=== PATIENT | female | born 1950 | race Caucasian/White ===

== ENCOUNTER → 2018-02-04 | Outpatient (CLI) | payer MEDICARE | LOC: GMAB 11:10 | PROVIDERS: ATTEND Family Medicine | DX: I10 Essential (primary) hypertension (principal) ==

== ENCOUNTER 2018-03-30 05:27 | Day surgery (SDC) | payer MEDICARE ==
[2018-03-30] MEDS ORDERED: LIDOCAINE 1% PF 2 ML AMP INJ ONE (05:28)
[2018-03-30] MEDS ORDERED: TROP 1%/CYCLOPEN 1%/PHENYL 2% DROPS ONE (06:03)
[2018-03-30] MEDS ORDERED: TOBRAMYCIN SULF 0.3 % OPHT SOL 1 DROP RIGHT_EYE ONE ×3 (07:00→07:53)
[2018-03-30] MEDS: PROPARACAINE 0.5% OPHTH SOL 15 ML BTTL ONE ×2 (07:00→07:25)
[2018-03-30] MEDS ORDERED: MIDAZOLAM INJ 2 MG/2 ML VIAL ONE (07:13)
[2018-03-30] MEDS ORDERED: DEXAMETHASONE 0.1% OPHTH SOL 1 DROP RIGHT_EYE ONE ×2 (07:40→07:53)
[2018-03-30] MEDS ORDERED: BRIMONIDINE 0.2% OPHTH DROPS RIGHT_EYE ONE ×2 (07:41→07:53)
[2018-03-30 08:52] VITALS: BP 190/103; TEMP 97.1; O2SAT 96
== END 2018-03-30 08:25 | disposition home or self-care (01) ==
LOC: AMB 05:27
PROVIDERS: ATTEND Ophthalmology
DX: H25.11 Age-related nuclear cataract, right eye (principal); I10 Essential (primary) hypertension; F41.9 Anxiety disorder, unspecified; F17.210 Nicotine dependence, cigarettes, uncomplicated
CPT/HCPCS: 00142; 66984; J2250

== ENCOUNTER 2018-04-13 05:16 | Day surgery (SDC) | payer MEDICARE ==
[2018-04-13] MEDS ORDERED: TROP 1%/CYCLOPEN 1%/PHENYL 2% DROPS ONE (05:49)
[2018-04-13] MEDS ORDERED: PROPARACAINE 0.5% OPHTH SOL 15 ML BTTL ONE (05:49)
[2018-04-13] MEDS ORDERED: MIDAZOLAM INJ 2 MG/2 ML VIAL ONE ×2 (07:40→07:48)
[2018-04-13] MEDS ORDERED: PROPARACAINE 0.5% OPHTH SOL 15 ML BTTL LEFT_EYE ONE (07:43)
[2018-04-13] MEDS ORDERED: LIDOCAINE 1% PF 2 ML AMP INJ ONE ×2 (07:54→07:57)
[2018-04-13] MEDS ORDERED: DEXAMETHASONE 0.1% OPHTH SOL 1 DROP LEFT_EYE ONE ×3 (07:54→08:10)
[2018-04-13] MEDS ORDERED: TOBRAMYCIN SULF 0.3 % OPHT SOL 1 DROP LEFT_EYE ONE ×3 (07:55→08:10)
[2018-04-13] MEDS ORDERED: BRIMONIDINE 0.2% OPHTH DROPS LEFT_EYE ONE ×3 (07:55→08:10)
== END 2018-04-13 08:35 | disposition home or self-care (01) ==
LOC: AMB 05:16
PROVIDERS: ATTEND Ophthalmology
DX: H25.12 Age-related nuclear cataract, left eye (principal); I10 Essential (primary) hypertension; J44.9 Chronic obstructive pulmonary disease, unspecified; F41.9 Anxiety disorder, unspecified; F17.200 Nicotine dependence, unspecified, uncomplicated
CPT/HCPCS: 00142; 66984; J2250

== ENCOUNTER 2018-08-19 10:44 | Inpatient (IN) | payer MEDICARE, OTHER ==
--- NOTE | 2018-08-19 11:31 | ED.PDOC ---
History of Present Illness - General Chief Complaint: Neuro Symptoms/Deficits Stated Complaint: dizzy Time Seen by Provider: 08/19/18 10:46 Source: patient Exam Limitations: no limitations - History of Present Illness Initial Comments: the patient is a 67-year-old female who lives alone presents by EMS secondary to waking up with severe dizziness this morning. She does not describe it as true rotational vertigo but she does not want to open her eyes as it does make the dizziness worse. On exam she does not track my finger well to test for nystagmus and she reports she is too dizzy to do so. She denies any long-term medical problems and has not taken any medications. She was significantly hypertensive upon arrival by EMS for systolic blood pressure around 210. An oral nitroglycerin brought that down approximately 30 points. No chest pain or shortness of breath. She did throw up twice with the onset of the dizziness. No focal neurological deficits otherwise. Upon initial observation when the patient falls asleep her oxygen levels do desaturate down to around 80%. She has no known history of any congestive heart failure, COPD, asthma, pneumonia or pulmonary emboli in the past. She does appear to be breathing when this occurs. This has been confirmed with 2 separate pulse oximetries. Timing/Duration: 1-3 hours Severity: severe Improving Factors: nothing Worsening Factors: movement Associated Symptoms: other - dizziness Allergies/Adverse Reactions: Allergies NO KNOWN ALLERGY Allergy (Verified 08/19/18 11:00) Home Medications: Ambulatory Orders NK [NK] 03/30/18 Review of Systems - Review of Systems Constitutional: States: malaise EENTM: States: other - the dizziness is worse with opening the eyes. She has a difficult time focusing. Respiratory: States: no symptoms reported Cardiology: States: no symptoms reported Gastrointestinal/Abdominal: States: nausea, vomiting - no blood or bile Genitourinary: States: no symptoms reported Musculoskeletal: States: no symptoms reported Skin: States: no symptoms reported Neurological: States: anxiety, headache - she initially reported a mild headache to EMS however she is not reporting that currently. She did not fall Endocrine: States: no symptoms reported Hematologic/Lymphatic: States: no symptoms reported All other Systems: No Change from Baseline Past Medical History (General) - Patient Medical History Hx Dementia: No Hx of COPD: No Hx Cardiac Disorders: No Hx Congestive Heart Failure: No Hx Diabetes: No Hx Gastroesophageal Reflux: No Hx MRSA: No Surgical History: no surgical history - Vaccination History Hx Influenza Vaccination: No Hx Pneumococcal Vaccination: No - Social History Hx Alcohol Use: No Hx Substance Use Treatment: No - Female History Patient is a Female of Child Bearing Age (10 -59 yrs old): No Family Medical History - Family History Mother Family History: Unknown Physical Exam - Physical Exam General Appearance: Alert, No apparent distress Eye Exam: bilateral other - ocular exam is limited by patient cooperation. She reports that she is too dizzy to cooperate with the exam. Pupils do appear symmetrical. I will try to do another exam later. Ears, Nose, Throat: hearing grossly normal, normal ENT inspection, normal pharynx Neck: full range of motion, supple Respiratory: chest non-tender, lungs clear, normal breath sounds, no respiratory distress, no accessory muscle use Cardiovascular/Chest: normal peripheral pulses, regular rate, rhythm, no edema Peripheral Pulses: radial,right: 2+, radial,left: 2+, dorsalis pedis,right: 2+, dorsalis pedis,left: 2+ Gastrointestinal/Abdominal: non tender, soft Rectal Exam: deferred Back Exam: normal inspection, no CVA tenderness, no vertebral tenderness Extremity: non-tender, normal inspection, no pedal edema, normal capillary refill Neurologic: cat swamper II-XII nml as tested, no motor/sensory deficits, alert, normal mood/affect - the patient is mildly drowsy. No nuchal rigidity or meningeal signs., oriented x 3 Skin Exam: normal color Comments: Vital Signs - 24 hr 08/19/18 10:48 Temperature 96.1 F L Pulse Rate [ 67 pulse ox] Respiratory 22 Rate Blood Pressure 183/91 [Left Arm] O2 Sat by Pulse 96 Oximetry Vital Signs - 24 hr 08/19/18 08/19/18 08/19/18 10:48 11:55 12:42 Temperature 96.1 F L Pulse Rate Pulse Rate [ 67 71 70 pulse ox] Respiratory 22 16 Rate Blood Pressure 183/91 166/75 202/71 [Left Arm] O2 Sat by Pulse 96 96 99 Oximetry 08/19/18 12:54 Temperature Pulse Rate 65 Pulse Rate [ pulse ox] Respiratory 22 Rate Blood Pressure [Left Arm] O2 Sat by Pulse 97 Oximetry Progress - Progress Progress: 08/19/18 13:21 the patient is a 67-year-old female presenting to the emergency room this morning primarily due to vertigo. The patient is found to have significant hypoxia when she falls asleep dipping down below 80% on room air while her counted respiratory rate remains above 16. She has no known long- term lung pathology but has had pneumonia several times in the past and does smoke. The patient is going to be treated for COPD exacerbation and has received a dose of Decadron, DuoNeb's and a dose of IV azithromycin. She is also receiving supplemental oxygen. CT scan of the head was performed due to the significant vertigo. Clinically this does not appear to be benign positional vertigo at this time. This may be due to cerebral irritation from hypoxia in which case this may be hypoxic encephalopathy. Continue oxygen for now. The patient will be admitted for further treatment and workup as deemed necessary. She obviously has some chronic changes on her chest x-ray. Assuming she corrects with the above measures she will still need a follow-up pulmonology appointment for her chronic issues. Obviously smoking is not advised. Blood culture has been performed. The patient has had these findings explained to her and has agreed to the plan of care above. Please note that the patient does have some significant hypertension and has been started on some clonidine. Her blood pressures spike when her dizziness flares and decreases down to the 160s on the systolic end when she is relaxed. - Results/Orders Results/Orders: Laboratory Tests 08/19/18 08/19/18 08/19/18 Unknown Unknown Unknown WBC 10.2 RBC 5.04 Hgb 15.9 Hct 46.8 MCV 92.8 MCH 31.5 H MCHC 33.9 RDW 14.5 Plt Count 324 MPV 8.0 Absolute Neuts (auto) 5.80 Absolute Lymphs (auto) 3.30 Absolute Monos (auto) 0.70 Absolute Eos (auto) 0.30 Absolute Basos (auto) 0.10 Neutrophils % 56.9 Lymphocytes % 32.8 Monocytes % 6.9 Eosinophils % 2.7 Basophils % 0.7 PT 9.9 INR 0.99 PTT (SP) 24.3 D-Dimer, Quantitative Sodium 141 Potassium 3.4 L Chloride 105 Carbon Dioxide 26 Anion Gap 13.4 BUN 12 Creatinine 0.70 BUN/Creatinine Ratio 17.1 Random Glucose 134 H Serum Osmolality 283.0 Lactic Acid Calcium 9.6 Total Bilirubin 0.5 AST 18 ALT 9 L Alkaline Phosphatase 117 Creatine Kinase 39 CK-MB (CK-2) 1.4 CK-MB (CK-2) % Not Reportable Troponin I 0.04 B-Natriuretic Peptide 34.7 Serum Total Protein 7.6 Albumin 4.2 Globulin 3.4 Albumin/Globulin Ratio 1.2 TSH 4.37 08/19/18 08/19/18 Unknown Unknown WBC RBC Hgb Hct MCV MCH MCHC RDW Plt Count MPV Absolute Neuts (auto) Absolute Lymphs (auto) Absolute Monos (auto) Absolute Eos (auto) Absolute Basos (auto) Neutrophils % Lymphocytes % Monocytes % Eosinophils % Basophils % PT INR PTT (SP) D-Dimer, Quantitative 0.71 H* Sodium Potassium Chloride Carbon Dioxide Anion Gap BUN Creatinine BUN/Creatinine Ratio Random Glucose Serum Osmolality Lactic Acid 1.0 Calcium Total Bilirubin AST ALT Alkaline Phosphatase Creatine Kinase CK-MB (CK-2) CK-MB (CK-2) % Troponin I B-Natriuretic Peptide Serum Total Protein Albumin Globulin Albumin/Globulin Ratio TSH CT scan of the head shows no acute pathology.this was done without contrast. Chest x-ray shows vascular congestion along with calcified left hilar lymph nodes and scattered calcified granulomas in the lung bowens. She does have perihilar interstitial thickening possibly consistent with early CHF versus interstitial edema versus atypical infection. EKG shows normal sinus rhythm at a rate of 69 bpm. Normal axis. Normal R-wave progression. No acute ST segment changes concerning for ischemia. She does have mild left atrial dilation. Departure - Departure Clinical Impression: Vertigo, COPD with acute exacerbation, Hypoxia, Hypoxic encephalopathy Disposition: Admit Patient Referrals: Fercho Julio MD [Active Staff] - 1-2 Weeks Home Medications: Ambulatory Orders NK [NK] 03/30/18 Decision To Admit - Decistion To Admit Decision to Admit Reason: Medical Nature Decision to Admit Date: 08/19/18 Decision to Admit Time: 13:26
--- NOTE | 2018-08-19 11:51 | RAD ---
EXAM DESCRIPTION: Chest,1 View CLINICAL HISTORY: 67 years Female, acute dizziness, hypoxia COMPARISON: None available IMPRESSION: The lung apices are not fully included on the [id number], which limits evaluation. The heart is enlarged, with borderline central pulmonary vascular congestion. Calcified left hilar lymph nodes with scattered calcified granulomas. The lungs are hyperexpanded. Perihilar interstitial thickening is demonstrated, which may be secondary to atelectasis/scarring, CHF with interstitial edema, versus an atypical infectious/inflammatory process. No confluent airspace consolidation, pleural effusion, or pneumothorax. No acute osseous abnormality. Electronically signed by: Devendra Yeager MD 08/19/2018 11:50 AM CDT
--- NOTE | 2018-08-19 11:56 | CT ---
EXAM DESCRIPTION: Head. CT head without contrast. CLINICAL HISTORY: acute dizziness, hypoxia COMPARISON: None available TECHNIQUE: Multiple axial images of the head without contrast. Multiplanar reformatted images. This exam was performed according to our departmental dose-optimization program, which includes automated exposure control, adjustment of the mA and/or kV according to patient size and/or use of iterative reconstruction technique. FINDINGS: There is no CT evidence of intracranial hemorrhage, mass effect, or large territory infarction. Mild generalized volume loss. Moderate supratentorial white matter hypodensities. There are no abnormal extra-axial fluid collections. Calcific plaque in the visualized arteries. There is no acute calvarial defect. The visualized paranasal sinuses and the mastoids are clear. IMPRESSION: 1. No CT evidence of an acute intracranial abnormality. If there is concern for an acute or subacute infarct, consider follow-up MRI. 2. Advanced senescent changes. Electronically signed by: Devendra Yeager MD 08/19/2018 11:55 AM CDT
[2018-08-19] MEDS ORDERED: IPRATROPIUM/ALBUTEROL 3 ML VIAL NEB ONE (12:22)
[2018-08-19] MEDS ORDERED: PROMETHAZINE HCL INJ 25 MG in SODIUM CHLORIDE 0.9% 50ML 50 ML IVPB ONE (12:22)
[2018-08-19] MEDS ORDERED: SODIUM CHLORIDE 0.9% 1000ML 1,000 ML IVS ONE (12:22)
[2018-08-19] MEDS ORDERED: DEXAMETHASONE INJ 4 MG/ML VIAL IV ONE (12:23)
[2018-08-19] MEDS ORDERED: SODIUM CHLORIDE 0.9% 50ML 50 ML ONE (12:28)
[2018-08-19] MEDS ORDERED: PROMETHAZINE HCL INJ 25 MG/ML VIAL ONE (12:28)
[2018-08-19] MEDS ORDERED: cloNIDine HCL 0.1 MG TAB PO ONE (12:53)
[2018-08-19] MEDS ORDERED: AZITHROMYCIN IV 500 MG in SODIUM CHLORIDE 0.9% 250ML 250 ML IVPB ONE (13:00)
[2018-08-19] MEDS ORDERED: AZITHROMYCIN IV 500 MG VIAL IVPB ONE (13:02)
[2018-08-19] MEDS ORDERED: SODIUM CHLORIDE 0.9% 250ML 250 ML ONE (13:02)
--- NOTE | 2018-08-19 14:05 | HP ---
SUPERVISING PHYSICIAN: Alex Garcia M.D. CHIEF COMPLAINT: Dizziness. HISTORY OF PRESENT ILLNESS: Ms. Cervantes is a 67 year-old female patient that lives by herself that presented to the Emergency Room today via EMS for dizziness this morning. She notes that she had gotten up to go to a different room and became quite dizzy and was not feeling well with some nausea , and apparently had gone to the front door to open it and set her home alarm off at which time 911 was notified and she was brought to the Emergency Room. It was noted that she was describing her dizziness changing with position and dissipating with able to change position or lying in bed still. There was no significant other neurologic findings on admission. Of significance though was she was quite hypertensive on admission by EMS with a systolic blood pressure of around 210. She was given oral Nitroglycerin that brought the blood pressure down. She was denying any chest pains or shortness of breath. She did have 2 episodes of emesis at the time of her dizziness. Of note though in the E. R. when she was resting, observation by Dr. Adames was that when she fell asleep on room air she would sat into the low 80s. She is a current smoker but has no history of chronic obstructive pulmonary disease, asthma, heart failure or pulmonary embolism from the past. Laboratory studies showed that she did have a normal white count and no left shift currently. She had a slightly elevated D-dimer at 0.7. Chemistries are fairly unremarkable with just a mildly low potassium at 3.4. Lactic acid was normal at 1. Urinalysis was within normal limits. Radiographic imaging in the E. R. initially showed a chest x-ray per radiology interpretation of a single view chest noted the heart was enlarged with borderline central pulmonary vascular congestion with multiple calcified granulomas. Also of note was perihilar interstitial thickening which could be secondary to either atelectasis, scarring, congestive heart failure with interstitial edema versus atypical infectious inflammatory process. There was no noted consolidations, pneumothoraxes or pleural effusions. Dr. Adames felt like the patient was having some hypoxic encephalopathy symptoms due to her desaturations during sleep complicated by possible developing community-acquired pneumonia. Initially he had blood cultures completed. She was started on antibiotics and now is going to be admitted for continuation of workup for the vertigo and concerns for possible pneumonia. She was admitted in stable condition. PAST MEDICAL HISTORY: 1. Hypertension not currently under any treatment. PAST SURGICAL HISTORY: 1. Bilateral cataract removal. CURRENT MEDICATIONS: No chronic medications noted She does use Motrin p.r.n. and Zyrtec p.r.n. ALLERGIES: NO KNOWN DRUG ALLERGIES. FAMILY HISTORY: Noncontributory. SOCIAL HISTORY: The patient is . She lives alone. She is retired. She does note that she has smoked since 17 years of age but only smokes about 1/ 4 pack a day. Denies any alcohol or illicit drug use. REVIEW OF SYSTEMS: CONSTITUTIONAL: General malaise but no reported fevers or weight loss. HEENT: As noted, dizziness worse with opening of her eyes as well as position changes. No sore throat or nasal congestion. She notes that she does have some fullness in both of her ears, more so on the right than the left. RESPIRATORY: Denies any coughing, wheezing, shortness of breath or dyspnea, but as noted in history of present illness showing some desaturations on room air at rest. CARDIOVASCULAR: Denies any shortness of breath, dyspnea, peripheral edema, chest pains, palpitations or syncopal episodes. GASTROINTESTINAL: As noted, she has had some nausea and vomiting associated with her dizziness but no blood or bile. No reported abdominal pains, constipation or diarrhea. GENITOURINARY: Denies any dysuria, hematuria, polyuria or other urinary symptoms. NEUROLOGIC: Positive for headaches and anxiety which was initially reported to EMS, but denied any headaches on arrival, more likely associated with administration of Nitroglycerin and denies any syncopal/near syncopal episodes, ataxia, seizures or other neurologic deficits. PHYSICAL EXAMINATION: VITAL SIGNS: Initially in the Emergency Department, blood pressure 183/[address] up to 202/71, but she was afebrile at 96.1 temperature with pulse ranging between 56 and 70, respirations 16 to 22 but she was satting on room air awake 96 to 98, but during rest and asleep was noted to be satting into the low 80s. On admission to the Medical/Surgical floor, blood pressure was 143/80 with no other medications administered other than Clonidine times 1. GENERAL: On admission to the Medical/Surgical floor, the patient is resting comfortably on her side, asleep but easily arousable. Appears to be in no acute distress. HEENT: Pupils were symmetrical, equal and reactive to light. There was no notable nystagmus. Ears: Tympanic membranes appear to be clear bilaterally. Oropharynx was pink and moist without any lesions. NECK: Supple, non-tender with full range of motion. No jugular venous distention. CHEST: Lungs were clear to auscultation bilaterally without any notable rhonchi , wheezing or rales. CARDIOVASCULAR: Regular rate and rhythm without appreciable murmurs, gallops, or rubs. ABDOMEN: Soft, non-tender. Positive bowel sounds. EXTREMITIES: Without any clubbing, cyanosis or edema. NEUROLOGIC: Cranial nerves II-XII are grossly intact. There was no obvious motor or sensory deficits. There was no nuchal rigidity or meningeal signs. Facial features were symmetrical. Extraocular movements are within normal limits. No notable nystagmus. INTEGUMENT: Skin was warm, pink and dry. No lesions or rashes. No diaphoresis. LABORATORY: White count was within normal limits at 10,200, hemoglobin 15.9, hematocrit 46.8, platelet count 324,000. Differential showed to be without a left shift. Coagulation studies showed normal PT and PTT, just slightly elevated D-dimer of 0.71. Chemistries showed just a mild hypokalemia with potassium 3.4, otherwise all other electrolytes were within normal limits. BUN 12, creatinine 0.70, blood sugar was 134, lactic acid 1.0. Liver functions all showed to be within normal limits. TSH was normal at 4.37. BNP and troponin both were within normal limits. Urinalysis showed to be within normal limits. MICROBIOLOGY: Blood cultures and sputum cultures are pending. RADIOLOGY: Single view chest per radiology interpretation showed calcified left hilar lymph nodes with scattered calcified granulomas. There was also note of perihilar interstitial thickening along with concerns for either atelectasis versus scarring versus congestive heart failure with interstitial edema versus atypical infectious inflammatory process. There is no mention of consolidations, pleural effusions or pneumothorax. She also had a CT of the head and per radiology interpretation showed no CT evidence of acute intracranial abnormalities. There was advance senescent changes noted. ASSESSMENT: 1. Vertigo, uncertain etiology likely benign positional with no acute findings on CT. 2. Nausea and vomiting secondary to #1. 3. Chronic obstructive pulmonary disease with acute exacerbation with concerns for developing atypical pneumonia. 4. Hypoxia notably during sleep likely secondary to #1. 5. Concerns for hypoxic encephalopathy complicating the vertigo and exacerbated by the chronic obstructive pulmonary disease with exacerbation with concerns for developing atypical pneumonia. 6. Hypertensive urgency possibly contributing to worsening vertigo with the patient not currently on any medications. PLAN: The patient is going to be placed in Observation tonight for close monitoring of her blood pressure as well as starting her on aggressive pulmonary hygiene. She was initially on antibiotics in the E. R. initially with azithromycin and Rocephin which will continue. I will go ahead and start her on some fluids to ensure that she is not dehydrated as well as do cardiac monitoring. Will hopefully be able to discharge tomorrow after repeat chest x- rays and labs. Again, there is concern for atypical pneumonia, but at this point she should be able to be treated as an outpatient, but will continue to reevaluate in the morning. Until she can transition to outpatient management will continue to monitor and treat appropriately. #[id number] [facility]
[2018-08-19] MEDS ORDERED: SODIUM CHLORIDE 0.9% (FLUSH) 10 ML SYG IV PRN ×2 (15:08→15:11)
[2018-08-19] MEDS ORDERED: MORPHINE SULFATE INJ 10 MG/ML VIAL IV PRN (15:11)
[2018-08-19] MEDS ORDERED: ACETAMINOPHEN 325 MG TAB PO PRN (15:11)
[2018-08-19] MEDS ORDERED: ONDANSETRON INJ 4 MG/2 ML VIAL IV PRN (15:11)
[2018-08-19] MEDS ORDERED: ALBUTEROL SULFATE 2.5 MG/3 ML VIAL NEB PRN (15:11)
[2018-08-19] MEDS ORDERED: HYDROcodone 5MG/APAP 325MG 1 EA TAB PO PRN (15:11)
[2018-08-19] MEDS ORDERED: IV SET AND CAP CHANGE INJ INJ SCH ×2 (15:30)
[2018-08-19] MEDS ORDERED: SODIUM CHL 0.9% 50ML MIN-BAG+ 50 ML IVPB ONE (15:30)
[2018-08-19] MEDS ORDERED: cefTRIAXone SODIUM 1 GM VIAL ONE (15:31)
[2018-08-19] MEDS: cefTRIAXone SODIUM 1 GM in SODIUM CHL 0.9% 50ML MIN-BAG+ 50 ML IVPB SCH (15:34)
[2018-08-19] MEDS: IPRATROPIUM/ALBUTEROL 3 ML VIAL INH SCH ×2 (16:07→19:50)
[2018-08-19] MEDS ORDERED: MECLIZINE HCL 12.5 MG TAB PO PRN (19:35)
[2018-08-19] MEDS: KCL 40 MEQ/D5 1/2NS 1,000 ML IVS PRN (20:23)
[2018-08-20] MEDS: NICOTINE PATCH 14 MG TD SCH ×2 (05:35→08:46)
[2018-08-20] MEDS: PANTOPRAZOLE SODIUM IV 40 MG VIAL IV SCH (06:00)
--- NOTE | 2018-08-20 07:09 | RAD ---
EXAM: Two view chest. INDICATION: Pneumonia. COMPARISON: Chest x-ray: 08/19/2018. FINDINGS: Cardiac silhouette: Enlarged Deanna: Unremarkable. Lobar consolidation: None. Pleural effusion: None. Pneumothorax: None. Other: A calcified right breast implant is noted Bones: Unremarkable. Other: None. IMPRESSION: 1. No acute cardiopulmonary process. Electronically signed by: Nick Kim MD 08/20/2018 7:08 AM CDT Workstation: [id number]
[2018-08-20] MEDS: IPRATROPIUM/ALBUTEROL 3 ML VIAL INH SCH ×4 (08:25→20:38)
[2018-08-20] MEDS: AZITHROMYCIN 250 MG TAB PO SCH (08:45)
[2018-08-20] MEDS: ENOXAPARIN SODIUM 40 MG/0.4 ML SYG SUBCU SCH (08:48)
[2018-08-20] MEDS: KCL 40 MEQ/D5 1/2NS 1,000 ML IVS PRN ×2 (10:18→22:49)
[2018-08-20] MEDS ORDERED: cefTRIAXone SODIUM 1 GM VIAL ONE (15:06)
[2018-08-20] MEDS ORDERED: SODIUM CHL 0.9% 50ML MIN-BAG+ 50 ML IVPB ONE (15:06)
[2018-08-20] MEDS: cefTRIAXone SODIUM 1 GM in SODIUM CHL 0.9% 50ML MIN-BAG+ 50 ML IVPB SCH (15:14)
[2018-08-21] MEDS: PANTOPRAZOLE SODIUM IV 40 MG VIAL IV SCH (06:07)
[2018-08-21] MEDS: IPRATROPIUM/ALBUTEROL 3 ML VIAL INH SCH (07:59)
[2018-08-21] MEDS: LORATADINE 10 MG TAB PO SCH (08:00)
--- NOTE | 2018-08-21 08:18 | PN ---
SUPERVISING PHYSICIAN: Alex Garcia MD DATE: 08/20/18 SUBJECTIVE: This morning, the patient is having some chills. She has developed a significant wetter cough and feels a little short of breath. She notes that her dizziness is almost resolved, but continues to have some with position changes, but not as severe when she was first admitted. She is without any chest pains. She has had no emesis, no abdominal pains. OBJECTIVE: VITAL SIGNS: Temperature 98.4. Pulse 79. Blood pressure 155/82. Respirations 15. Saturation 95% on nasal cannula on 1 liter at rest. I&Os show negative balance of 359 with 541 in, 900 out. Weight 59.4 kg. GENERAL: The patient does appear ill. She is in no acute distress, but is at times curled up on a position although she has no complaints of any abdominal pain. CHEST: Lung sounds are diminished bilaterally with no wheezing. There is some rhonchi heard on the right lower lobe, more in the posterolateral aspect. HEART: Regular rate and rhythm. ABDOMEN: Soft, nontender. Positive bowel sounds. EXTREMITIES: No cyanosis, clubbing or edema. NEUROLOGIC: Alert and oriented times three without any significant neurologic findings. Ny nystagmus, no ataxia. Facial features are symmetrical. LABORATORY: White count up to 14,400 with hemoglobin 13, hematocrit 39.3, platelet count 266,000. Differential does show a left shift. Chemistries show normal electrolytes with potassium 4.5, calcium 9.2. MICROBIOLOGY: Sputum culture pending. Blood cultures remain negative after 24 hours. RADIOLOGY: Repeat chest x-ray today per radiologic interpretation shows no acute processes noted. ASSESSMENT: 1. Vertigo, uncertain etiology, likely benign positional vertigo with no acute findings on CT and the patient's symptoms resolving, requiring further monitoring and workup as an outpatient with the patient denying any loss of hearing, but notes that she does have some fullness and tinnitus more on the left than the right. 2. Nausea and vomiting secondary to #1, resolved. 3. Chronic obstructive pulmonary disease with acute exacerbation with concerns for developing atypical pneumonia with the patient now showing leukocytosis and currently on bronchial therapy with parenteral antibiotics with Rocephin and azithromycin. 4. Hypoxia notably during sleep, possibly secondary to #1 with possibility of some obstructive sleep apnea with ongoing assessment and possibly sleep study at discharge. 5. Possible hypoxic encephalopathy complicating the vertigo and exacerbated by the chronic obstructive pulmonary disease and atypical pneumonia in combination with the questionable obstructive sleep apnea with the patient showing desaturations as well as apneic episodes. 6. Hypertensive urgency, likely contributing to worsening vertigo at times with the patient not currently on any antihypertensive medications. PLAN: The patient has been changed to admission with concerns for developing atypical pneumonia versus community acquired pneumonia. She did develop a leukocytosis and is now showing evidence of a cough since admission. We will continue with bronchial therapy as well as parenteral antibiotics with azithromycin and Rocephin. She has been on IV fluids and appears to be more hydrated. We will discontinue those as needed. We will plan to check x-ray and labs again in the morning. Given her hypertension that has been persistent , I will go ahead and start her on an DURAN inhibitor, lisinopril 10 mg daily, and monitor closely. Hopefully we will be able to discharge in the next 24 to 48 hours as she shows some clinical improvement and is able to transition to outpatient management with oral medications. Until then, we will continue to monitor the patient closely and treat appropriately. #[id number] [facility]
[2018-08-21] MEDS: ENOXAPARIN SODIUM 40 MG/0.4 ML SYG SUBCU SCH (10:01)
[2018-08-21] MEDS ORDERED: LISINOPRIL 10 MG TAB ONE (10:18)
[2018-08-21] MEDS ORDERED: LISINOPRIL 10 MG TAB PO ONE (11:00)
[2018-08-21] MEDS: CITALOPRAM HBR 20 MG TAB PO SCH ×3 (11:05→17:24)
[2018-08-21] MEDS: AZITHROMYCIN 250 MG TAB PO SCH (11:05)
[2018-08-21] MEDS: FLUTICASONE PROP 0.05% NASAL 16 GM BTTL BNAS SCH (11:06)
[2018-08-21] MEDS: NICOTINE PATCH 14 MG TD SCH (11:06)
[2018-08-21] MEDS: SODIUM CHLORIDE 0.9% (FLUSH) 10 ML SYG IV SCH ×2 (11:14→20:36)
[2018-08-21] MEDS ORDERED: SODIUM CHL 0.9% 50ML MIN-BAG+ 50 ML IVPB ONE (14:52)
[2018-08-21] MEDS ORDERED: cefTRIAXone SODIUM 1 GM VIAL ONE (14:53)
[2018-08-21] MEDS ORDERED: cefTRIAXone SODIUM 1 GM VIAL IM SCH (16:30)
[2018-08-21] MEDS ORDERED: LIDOCAINE 1% 2 ML VIAL INJ ONE (16:35)
[2018-08-21] MEDS: cefTRIAXone SODIUM 1 GM in SODIUM CHL 0.9% 50ML MIN-BAG+ 50 ML IVPB SCH (16:44)
[2018-08-21] MEDS: LEVALBUTEROL NEBS 1.25 MG/3 ML VIAL NEB SCH (16:45)
[2018-08-21] MEDS ORDERED: LISINOPRIL 10 MG TAB PO SCH (20:00)
[2018-08-22] MEDS: LEVALBUTEROL NEBS 1.25 MG/3 ML VIAL NEB SCH ×2 (00:05→07:41)
[2018-08-22] MEDS ORDERED: LISINOPRIL 10 MG TAB PO SCH (09:00)
[2018-08-22] MEDS: AZITHROMYCIN 250 MG TAB PO SCH (09:09)
[2018-08-22] MEDS: CITALOPRAM HBR 20 MG TAB PO SCH (09:09)
[2018-08-22] MEDS: FLUTICASONE PROP 0.05% NASAL 16 GM BTTL BNAS SCH (09:09)
[2018-08-22] MEDS: NICOTINE PATCH 14 MG TD SCH (09:10)
[2018-08-22] MEDS: ENOXAPARIN SODIUM 40 MG/0.4 ML SYG SUBCU SCH (09:10)
[2018-08-22] MEDS: SODIUM CHLORIDE 0.9% (FLUSH) 10 ML SYG IV SCH (09:12)
[2018-08-22] MEDS: LORATADINE 10 MG TAB PO SCH (09:12)
[2018-08-22 09:53] VITALS: BP 157/74; TEMP 97.2; O2SAT 94
--- NOTE | 2018-08-22 10:37 | PN ---
SUPERVISING PHYSICIAN: Alex Garcia MD DATE: 08/21/18 SUBJECTIVE: This morning the patient has had some anxiety attacks. She also is quite anxious and is utilizing a straw as a cigarette. She has not had any significant shortness of breath but she does continue to have poor control of her blood pressure. She notes she is no longer having any dizziness. OBJECTIVE: VITAL SIGNS: Temperature 98. Pulse 84. Blood pressure 198/80. Respirations 18. Saturation 95% on room air. I&Os show negative balance of 840 with 1860 in , 2700 out. Weight 69.8 kg. GENERAL: The patient is quite anxious but appears to be in no acute distress. She is very talkative, she is alert. CHEST: Lung sounds are much improved today, just slightly diminished towards the bases. HEART: Regular rate and rhythm. ABDOMEN: Soft, nontender. Positive bowel sounds. EXTREMITIES: No cyanosis, clubbing or edema. NEUROLOGIC: Alert and oriented times three. LABORATORY: White count now down to 10,300 with hemoglobin 12.3, hematocrit 37.1, platelet count 240,000. Differential show to be without a left shift. Chemistries show normal electrolytes with potassium 4.5, calcium 9.2. MICROBIOLOGY: Blood cultures remain negative at 48 hours. Sputum culture is pending. RADIOLOGY: No additional radiographic studies today. ASSESSMENT: 1. Vertigo, uncertain etiology on admission, likely benign positional paroxysmal vertigo with no acute findings on CT with patient's symptoms resolving and exacerbated by head movements possibly related to left inner ear problem with patient reporting fullness and some tinnitus. 2. Chronic obstructive pulmonary disease with acute exacerbation with atypical pneumonia presentation on radiographic studies with patient showing initial leukocytosis requiring initiation of bronchial therapy with parenteral antibiotics with Rocephin and azithromycin, now showing improvement. 4. Hypertensive urgency with difficult to control blood pressures, probably worsening her vertigo at times with patient initially on any antihypertensives requiring initiation of medications and close monitoring prior to discharge. 5. Hypoxia noted during sleep initially on admission with the patient showing low saturations into the low 80s possibly related to sleep apnea with ongoing assessment and possible sleep study at discharge. 6. Concerns for hypoxic encephalopathy secondary to obstructive sleep apnea complicated the vertigo and exacerbating her chronic obstructive pulmonary disease. PLAN: The patient has still not had good control of her blood pressures. I have initiated lisinopril and will anticipate discharging tomorrow should her blood pressures show to be stable today. Will closely monitor her neurological function and continue with parenteral antibiotics for coverage for the concern for atypical pneumonia with Rocephin and azithromycin. She has been saline- locked as well as she had a physical therapy evaluation. I have an DURAN inhibitor and hopefully, should her blood pressure cooperate will be able to discharge tomorrow with close clinical followup with Dr. Wild in the following week or so to further address the vertigo and hypertension. Until then, we will continue to monitor the patient closely and treat appropriately. #[id number]
--- NOTE | 2018-09-06 08:27 | DS ---
SUPERVISING PHYSICIAN: Alex Garcia MD ADMISSION DIAGNOSES: 1. Vertigo, uncertain etiology, likely benign positional with no acute findings o CT. 2. Nausea and vomiting secondary to #1. 3. Chronic obstructive pulmonary disease with acute exacerbation with concerns for developing atypical pneumonia.. 4. Hypoxia noted during sleep likely secondary to #1. 5. Concerns for hypoxic encephalopathy complicating the vertigo and exacerbated by chronic obstructive pulmonary disease with exacerbation with concerts for developing atypical pneumonia. 6. Hypertensive urgency possibly contributing to worsening vertigo with the patient not currently on any antihypertensive medication. DISCHARGE DIAGNOSES: 1. Vertigo, uncertain etiology, likely benign positional paroxysmal vertigo with no acute findings on CT with patient's symptoms resolving and having shown exacerbation by head movements possibly secondary to inner ear problem with patient reporting fullness and tinnitus requiring workup as an outpatient. 2. Chronic obstructive pulmonary disease with acute exacerbation with atypical pneumonia presentation on radiographic studies with patient showing initial leukocytosis on admission requiring initiation of bronchial hygiene and parenteral antibiotics with patient showing improvement with Rocephin and azithromycin.. 3. Hypertensive urgency with difficult to control blood pressures, probably due to worsening vertigo at times with patient initially not on any antihypertensives requiring initiation of medications and close monitoring prior to discharge. 4. Hypoxia noted during sleep initially on admission with the patient showing low saturations into the low 80s possibly related to sleep apnea with ongoing assessment and possible sleep study at discharge. 5. Hypoxic encephalopathy secondary to obstructive sleep apnea complicated the vertigo and exacerbating her chronic obstructive pulmonary disease. REASON FOR HOSPITALIZATION: Ms. Cervantes is a 67 year-old female patient that lives by herself who initially that presented to the Emergency Room on 08/19/18 via EMS for dizziness that started early in the morning. She noted that she had gotten up to go to a different room and became quite dizzy and was not feeling well with some nausea, and apparently had gone to the front door to open it and set her home alarm off at which time 911 was notified and she was brought to the Emergency Room. It was noted that she was describing her dizziness associated with change in position and dissipating with rest and able to change position as well as resolved with lying in bed. No significant other neurologic findings were noted on admission. Although of significance was , she was quite hypertensive by EMS with a systolic blood pressure initially around 210. She was given oral Nitroglycerin that did bring her blood pressure down. She was denying any chest pains or shortness of breath. She did have 2 episodes of emesis at the time of her dizziness. Of note though in the E. R. when she was resting, observation by Dr. Adames was that when she fell asleep on room air she would sat into the low 80s. It should be noted that she is a current smoker and has a history of chronic obstructive pulmonary disease, asthma, heart failure, pulmonary embolisms in the past. Laboratory studies showed that she did have a normal white count with no shift, Her D-dimer was slightly elevated at 0.7. Chemistries were fairly unremarkable with just a mildly low potassium at 3.4. Lactic acid was normal at 1. Urinalysis was within normal limits. Radiographic imaging in the E. R. initially showed a chest x-ray per radiology interpretation of a single view chest noted the heart was enlarged with borderline central pulmonary vascular congestion and multiple calcified granulomas. Also of note was perihilar interstitial thickening which could be secondary to either atelectasis, scarring or congestive heart failure with interstitial edema versus atypical infectious inflammatory process. There was no noted consolidations, pneumothoraxes or pleural effusions. Dr. Adames felt like the patient was having some hypoxic encephalopathy symptoms due to her desaturations during sleep complicated by developing community-acquired pneumonia. Blood cultures were initiated and she was started on antibiotics and then was admitted to the medical/surgical floor in stable condition for further treatment and evaluation. LABORATORY: White count on admission was 10,200, it did go up to a maximum of 14,400, at discharge was down to 10,300. Hemoglobin and hematocrit were stable at 12.3 and 37.1 respectively with platelet count 248,000. Differential did show to be without a left shift. Coagulation studies showed a normal PT/PTT and a slightly elevated D-dimer at 0.71. Chemistries initially on admission showed a low potassium at 3.4, prior to discharge and with fluids electrolytes had normalized. BUN was at 15, creatinine 0.79. Liver functions all showed to be within normal limits. Urinalysis was within normal limits. MICROBIOLOGY: Blood cultures showed no growth at 5 days. Sputum culture was cancelled. RADIOLOGY: She had a CT of the head without contrast and per radiology interpretation, no CT evidence of no acute intracranial abnormalities was noted. Chest x-ray on admission and per radiology interpretation of single view chest showed lung apices were not fully included. Heart was enlarged Borderline central pulmonary vascular congestion, there was note of perihilar interstitial thickening demonstrated which could be secondary to atelectasis scarring, congestive heart failure with interstitial edema versus atypical infectious process, inflammatory. She had additional x-rays after admission on 08/20 and per radiology interpretation of 2-view chest showed no acute cardiopulmonary process. HOSPITAL COURSE: Ms. Cervantes was admitted on 08/19/18 for dizziness and vertigo concerning for developing chronic obstructive pulmonary disease exacerbation with pneumonia. She was started on antibiotics to include Rocephin and azithromycin as well as aggressive pulmonary hygiene. It was noted that she was a chronic smoker and she was encouraged to stop smoking, she was provided a nicotine patch while in the hospital and tolerating this without any problems. She was seen and evaluated by physical therapy who was able to perform some Jose De Jesus maneuvers and teach the patient on home-based exercises to fix her dizziness if possible. Physical therapy felt the patient was safe enough to discharge home with Home Health physical therapy if possible. On the date of discharge she was no longer having any nausea, vomiting or dizziness and was responding well to treatment plan and felt clinically stable enough to be discharged. PLAN: Ms. Cervantes was discharged on 08/22/18 with instructions to followup with her primary care physician, Dr. Wild, in one to two weeks. She was to followup with [facility] as well. She was encourage fluids orally to prevent dehydration. Once again, she was educated on the need to stop smoking as well as possible means to do so. She was encouraged to use excise to help with vertigo and was given instructions on vestibular exercises. INSTRUCTIONS/ACTIVITY: Increase activity as tolerated for physical therapy. DIET: Regular diet as tolerated. NEW MEDICATIONS PRESCRIBED AT DISCHARGE: 1. Albuterol nebulizer 2.5 mg every 4 hours as needed, #30. 2. Nicotine patch, 14 mg daily. 3. Cefdinir 300 mg twice a day, #14, no refills. 4. Celexa 10 mg daily, #30. 5. Flonase one spray in both nostrils daily, one bottle, no refills. 6. Lisinopril 10 mg daily, #30, no refills. 7. Meclizine 12.5 mg every 8 hours as needed, #30, no refills. All other medications per hospitalization were continued. DISCHARGE CONDITION: Stable and improved. #[id number]
== END 2018-08-22 11:36 | disposition home or self-care (01) | DRG 194 ==
LOC: ER 10:44 → MS 14:04
PROVIDERS: ADMIT Nurse Practitioner Family; ATTEND Nurse Practitioner Family
DX: J18.9 Pneumonia, unspecified organism (principal); J44.1 Chronic obstructive pulmonary disease with (acute) exacerbation; J44.0 Chronic obstructive pulmonary disease with (acute) lower respiratory infection; G93.1 Anoxic brain damage, not elsewhere classified; H81.10 Benign paroxysmal vertigo, unspecified ear; I16.0 Hypertensive urgency; I10 Essential (primary) hypertension; F17.210 Nicotine dependence, cigarettes, uncomplicated; E87.6 Hypokalemia; J84.10 Pulmonary fibrosis, unspecified; R09.02 Hypoxemia

== ENCOUNTER → 2019-09-24 | Outpatient (CLI) | payer OTHER | LOC: GMAE 10:44 | PROVIDERS: ATTEND Family Medicine | DX: I10 Essential (primary) hypertension (principal) ==